=== PATIENT | female | born 1990 | race Asian ===

== ENCOUNTER 2018-05-30 00:05 | Inpatient (IN) | payer SELFPAY ==
[~2018-05-30] VITALS: Ht 162.6 cm; Wt 66.7 kg
[2018-05-30] MEDS ORDERED: OXYTOCIN/0.9 % SODIUM CHLORIDE 1,000 ML IV SCH (00:26)
[2018-05-30] MEDS ORDERED: LR 1,000 ML IV SCH (00:26)
[2018-05-30] MEDS ORDERED: MISOPROSTOL 100 MCG TABLET (CYTOTEC) PO PRN (00:30)
[2018-05-30] MEDS ORDERED: NALBUPHINE HCL 10 MG/ML AMP IVP PRN ×2 (00:30→07:00)
[2018-05-30] MEDS ORDERED: NALBUPHINE HCL 10 MG/ML AMP IM PRN (00:30)
[2018-05-30] MEDS ORDERED: TERBUTALINE SULFATE 1 MG/ML VIAL SUBCUT ONE (00:30)
[2018-05-30 00:37] VITALS: BP_SYST 106
[2018-05-30 01:24] LABS: HEMATOCRIT 29.8 % (36-48); HEMOGLOBIN 9.9 g/dL (12.0-16.0); MEAN CORPUSCULAR HEMOGLOBIN 27 pg (27-31); MEAN CORPUSCULAR HGB CONC 33 % (32-36); MEAN CORPUSCULAR VOLUME 82 fL (79.0-98.0); PLATELET COUNT (AUTO) 211 K/uL (130-430); RED BLOOD CELL COUNT(AUTO) 3.63 MIL/uL (4.2-6.2); RED CELL DISTRIBUTION WIDTH 15.3 % (9.0-15.0); WHITE BLOOD COUNT (AUTO) 6.1 K/uL (4.8-10.8)
[2018-05-30 01:53] LABS: BASOPHILS % (MANUAL) 0 % (0-2); EOSINOPHILS % (MANUAL) 0 % (0-7); LYMPHOCYTES % (MANUAL) 31 % (20-46); MONOCYTES % (MANUAL) 6 % (0-11)
[2018-05-30] MEDS ORDERED: CEFAZOLIN 2 GM IVPB PREMIX 50 ML IV ONE ×2 (06:00→06:12)
[2018-05-30] MEDS ORDERED: MORPHINE SULFATE 10MG/10ML PF AMP SP SCH (07:00)
[2018-05-30] MEDS ORDERED: NALOXONE HCL 0.4 MG/ML AMP (NARCAN) IVP PRN ×2 (07:00)
[2018-05-30] MEDS ORDERED: fentaNYL CITRATE/PF 100 MCG/2 ML AMP IVP PRN ×2 (07:00)
[2018-05-30] MEDS ORDERED: DIPHENHYDRAMINE INJ 50 MG/ML VIAL IVP PRN (07:00)
[2018-05-30] MEDS ORDERED: KETOROLAC TROMETHAMINE 30 MG VIAL IVP PRN (07:00)
[2018-05-30] MEDS ORDERED: ONDANSETRON HCL 4 MG/2 ML VIAL IVP PRN ×2 (07:00)
[2018-05-30] MEDS ORDERED: KETOROLAC TROMETHAMINE 60 MG/2 ML VIAL IM PRN (07:00)
[2018-05-30 07:35] VITALS: BP_SYST 124
[2018-05-30] MEDS ORDERED: BUPIVACAINE /DEX PF 0.75% SPINAL 2 ML AMP INJ ONE (07:35)
[2018-05-30] MEDS ORDERED: LR 1,000 ML IV.SOLN IV ONE (07:35)
[2018-05-30] MEDS ORDERED: MORPHINE SULFATE 10MG/10ML PF AMP ONE (07:35)
[2018-05-30] MEDS ORDERED: VASOPRESSIN 20 UNITS/ML VIAL IV ONE (07:35)
[2018-05-30] MEDS ORDERED: OXYTOCIN/0.9 % SODIUM CHLORIDE 1,000 ML IV ONE (08:02)
[2018-05-30] MEDS ORDERED: MEASLES,MUMPS&RUBELLA VACC/PF 12500 UNIT/0.5 ML VIAL SUBQ PRN (08:15)
[2018-05-30] MEDS ORDERED: LANOLIN 7 GM OINT. TP PRN (08:15)
[2018-05-30] MEDS ORDERED: ANUSOL 1 EA SUPP.RECT (PREPARATION H) RC PRN (08:15)
[2018-05-30] MEDS ORDERED: HYDROcodone/ACETAMIN 5-325 MG TAB (NORCO/ VICODIN) PO PRN (08:15)
[2018-05-30] MEDS ORDERED: OXYCODONE/ACETAMINOPHEN 5-325 TABLET PO PRN ×2 (08:15)
[2018-05-30] MEDS: CEFAZOLIN 1 GM IVPB PREMIX 50 ML IV SCH ×3 (12:00→23:58)
[2018-05-30] MEDS ORDERED: TEMAZEPAM 15 MG CAPSULE PO PRN (21:00)
[2018-05-31] MEDS: IBUPROFEN 600 MG TABLET PO SCH ×4 (05:20→23:45)
[2018-05-31 07:33] LABS: HEMATOCRIT 28.5 % (36-48); HEMOGLOBIN 9.6 g/dL (12.0-16.0); MEAN CORPUSCULAR HEMOGLOBIN 28 pg (27-31); MEAN CORPUSCULAR HGB CONC 34 % (32-36); MEAN CORPUSCULAR VOLUME 83 fL (79.0-98.0); PLATELET COUNT (AUTO) 178 K/uL (130-430); RED BLOOD CELL COUNT(AUTO) 3.45 MIL/uL (4.2-6.2); RED CELL DISTRIBUTION WIDTH 15.3 % (9.0-15.0); WHITE BLOOD COUNT (AUTO) 7.2 K/uL (4.8-10.8)
[2018-05-31 09:20] LABS: LYMPHOCYTES % (MANUAL) 19 % (20-46)
[2018-05-31 09:21] LABS: BASOPHILS % (MANUAL) 0 % (0-2); EOSINOPHILS % (MANUAL) 0 % (0-7); MONOCYTES % (MANUAL) 1 % (0-11)
[2018-05-31] MEDS: DOCUSATE SODIUM 100 MG CAPSULE PO PRN ×2 (12:03→20:39)
[2018-05-31] MEDS: SIMETHICONE 80 MG TAB.CHEW PO PRN (20:39)
[2018-06-01] MEDS: IBUPROFEN 600 MG TABLET PO SCH ×2 (06:02→12:18)
[2018-06-01] MEDS: DOCUSATE SODIUM 100 MG CAPSULE PO PRN (12:17)
[2018-06-01] MEDS: SIMETHICONE 80 MG TAB.CHEW PO PRN (12:18)
== END 2018-06-01 13:50 | disposition home or self-care (01) | DRG 765 ==
LOC: SPU 00:05
PROVIDERS: ADMIT Obstetrics & Gynecology; ATTEND Obstetrics & Gynecology
PROC: 10D00Z1 Extraction of Products of Conception, Low, Open Approach (ICD-10-PCS; principal; 2018-05-30 06:30)
DX: O62.8 Other abnormalities of forces of labor (principal); O45.93 Premature separation of placenta, unspecified, third trimester; O69.81X0 Labor and delivery complicated by cord around neck, without compression, not applicable or unspecified; Z3A.39 39 weeks gestation of pregnancy; Z37.0 Single live birth
CPT/HCPCS: 36415; 85007; 85027; 86886; 86900; 86901; 94760; J0690; J2274; J2590; J3105; J3490; J7120